=== PATIENT | female | born 1970 | race Caucasian/White ===

== ENCOUNTER 2017-11-16 17:57 | Emergency (ER) | payer BC, OTHER ==
[~2017-11-16] VITALS: Ht 157.5 cm; Wt 127.0 kg
[~2017-11-16 17:57] MED LIST: AMPH30TA3 PO; BAC10T PO; BUPR150T6; COU5T PO; ENOX100S3 SQ; FERR325T28 PO; LEVO200T46 PO; OMEP20CA4 PO
[2017-11-16 18:22] LABS: BASOPHILS # (AUTO) 0.1 X10'3 (0-0.2); BASOPHILS % (AUTO) 1.5 % (0-1); EOSINOPHILS # (AUTO) 0.1 X10'3 (0-0.9); EOSINOPHILS % (AUTO) 2.3 % (0-6); HEMATOCRIT 36.1 % (35.0-45.0); HEMOGLOBIN 11.9 g/dl (12.0-16.0); LYMPHOCYTES # (AUTO) 1.6 X10'3 (1.1-4.8); LYMPHOCYTES % (AUTO) 25.7 % (21-51); MEAN CORPUSCULAR HEMOGLOBIN 25.3 PG (27.0-31.0); MEAN CORPUSCULAR HGB CONC 32.9 % (33.0-36.5); MEAN CORPUSCULAR VOLUME 76.8 FL (78-98); MEAN PLATELET VOLUME 6.5 FL (7.4-10.4); MONOCYTES # (AUTO) 0.7 X10'3 (0-0.9); MONOCYTES % (AUTO) 11.4 % (2-12); NEUTROPHILS # (AUTO) 3.6 X10'3 (1.8-7.7); NEUTROPHILS % (AUTO) 59.1 % (42-75); PLATELET COUNT 477 X10'3 (140-440); RED CELL DISTRIBUTION WIDTH 16.6 % (11.5-14.5); WHITE BLOOD COUNT 6.2 X10'3 (4.5-11.0)
[2017-11-16 18:38] LABS: ALANINE AMINOTRANSFERASE 28 U/L (12-78); ALBUMIN 3.9 G/DL (3.4-5.0); ALBUMIN/GLOBULIN RATIO 0.9 (1.1-1.5); ALKALINE PHOSPHATASE 85 IU/L (46-116); ANION GAP 9 (8-16); ASPARTATE AMINO TRANSFERASE 22 U/L (10-37); BILIRUBIN,TOTAL 0.2 MG/DL (0.1-1.0); BLOOD UREA NITROGEN 13 MG/DL (7-18); BUN/CREATININE RATIO 18.1 (6.6-38.0); CALCIUM 9.2 MG/DL (8.5-10.1); CHLORIDE 104 MMOL/L (99-107); CREATININE 0.72 MG/DL (0.40-0.90); GLUCOSE 98 MG/DL (70-104); POTASSIUM 4.6 MMOL/L (3.5-5.1); SODIUM 143 MMOL/L (135-145); TOTAL PROTEIN 8.1 G/DL (6.4-8.2); eGFR 87 ML/MIN
[2017-11-16 18:57] LABS: INR 0.9 INR; PARTIAL THROMBOPLASTIN TIME 26 SECONDS (22-32); PROTHROMBIN TIME 9.4 SECONDS (9.0-12.0)
[2017-11-16 18:58] LABS: D-DIMER 0.34 MG/L FEU (0-0.50)
[2017-11-16 20:06] VITALS: BP 134/99
[2017-11-16] MEDS ORDERED: ketorolac trometh inj. 60 MG/2 ML VIAL IM ONE (20:30)
== END 2017-11-16 20:51 | disposition home or self-care (01) ==
LOC: ER 17:57
DX: M25.562 Pain in left knee (principal); R06.02 Shortness of breath; Z86.711 Personal history of pulmonary embolism; Z79.899 Other long term (current) drug therapy; Z98.84 Bariatric surgery status; Z79.01 Long term (current) use of anticoagulants; Z91.010 Allergy to peanuts; Z86.718 Personal history of other venous thrombosis and embolism
CPT/HCPCS: 29505; 36415; 71045; 80053; 84484; 85025; 85379; 85610; 85730; 93005; 93971; 96372; 99285; J1885

== ENCOUNTER 2017-12-27 10:59 | Outpatient (CLI) | payer OTHER ==
[2017-12-27 10:56] VITALS: BP 107/66
== END 2017-12-27 11:42 | disposition home or self-care (01) ==
LOC: ORTHO 10:59
PROVIDERS: ATTEND Nurse Practitioner Family
DX: M25.562 Pain in left knee (principal); G89.29 Other chronic pain; E03.9 Hypothyroidism, unspecified; F90.9 Attention-deficit hyperactivity disorder, unspecified type; Z86.711 Personal history of pulmonary embolism; Z91.010 Allergy to peanuts
CPT/HCPCS: 99212

== ENCOUNTER 2018-11-07 10:12 | Outpatient (CLI) | payer BC ==
[2018-11-07 10:24] VITALS: BP 134/79
== END 2018-11-07 11:05 | disposition home or self-care (01) ==
LOC: ORTHO 10:12
PROVIDERS: ATTEND Nurse Practitioner Family
DX: M17.12 Unilateral primary osteoarthritis, left knee (principal); J45.909 Unspecified asthma, uncomplicated; Z72.89 Other problems related to lifestyle; Z91.018 Allergy to other foods
CPT/HCPCS: 73564; 99213

== ENCOUNTER 2019-04-20 21:59 | Emergency (ER) | payer BC ==
[~2019-04-20] VITALS: Ht 157.5 cm; Wt 128.0 kg
[2019-04-20 22:32] VITALS: BP 159/95
[2019-04-20 22:42] LABS: BASOPHILS # (AUTO) 0.1 X10'3 (0-0.2); BASOPHILS % (AUTO) 1.1 % (0-1); EOSINOPHILS # (AUTO) 0.2 X10'3 (0-0.9); EOSINOPHILS % (AUTO) 2.3 % (0-6); HEMATOCRIT 37.8 % (35.0-45.0); HEMOGLOBIN 12.4 g/dl (12.0-16.0); LYMPHOCYTES # (AUTO) 2.9 X10'3 (1.1-4.8); LYMPHOCYTES % (AUTO) 31.8 % (21-51); MEAN CORPUSCULAR HEMOGLOBIN 26.1 PG (27.0-31.0); MEAN CORPUSCULAR HGB CONC 32.9 g/dL (33.0-36.5); MEAN CORPUSCULAR VOLUME 79.5 FL (78-98); MEAN PLATELET VOLUME 6.6 FL (7.4-10.4); MONOCYTES # (AUTO) 0.8 X10'3 (0-0.9); MONOCYTES % (AUTO) 8.9 % (2-12); NEUTROPHILS % (AUTO) 55.9 % (42-75); PLATELET COUNT 483 X10'3 (140-440); RED BLOOD COUNT 4.75 X10'6 (4.20-5.60); RED CELL DISTRIBUTION WIDTH 15.9 % (11.5-14.5)
[2019-04-20 22:51] LABS: ALANINE AMINOTRANSFERASE 30 U/L (12-78); ALBUMIN 3.6 G/DL (3.4-5.0); ALBUMIN/GLOBULIN RATIO 0.8 (1.1-1.5); ALKALINE PHOSPHATASE 91 IU/L (46-116); ANION GAP 5 (8-16); ASPARTATE AMINO TRANSFERASE 22 U/L (10-37); BILIRUBIN,TOTAL 0.2 MG/DL (0.1-1.0); BLOOD UREA NITROGEN 24 MG/DL (7-18); BUN/CREATININE RATIO 35.3 (6.6-38.0); CALCIUM 9.1 MG/DL (8.5-10.1); CHLORIDE 107 MMOL/L (99-107); CREATININE 0.68 MG/DL (0.40-0.90); GLUCOSE 100 MG/DL (70-104); POTASSIUM 4.2 MMOL/L (3.5-5.1); SODIUM 141 MMOL/L (135-145); TOTAL CARBON DIOXIDE 28.7 MMOL/L (24-32); TOTAL PROTEIN 7.9 G/DL (6.4-8.2); eGFR > 90 ML/MIN
[2019-04-20 22:55] LABS: TROPONIN I < 0.04 NG/ML (0.0-0.05)
[2019-04-20 22:57] LABS: PARTIAL THROMBOPLASTIN TIME 27 SECONDS (22-32)
== END 2019-04-20 22:49 | disposition home or self-care (01) ==
LOC: ER 22:01
DX: R20.2 Paresthesia of skin (principal); R20.0 Anesthesia of skin; R53.1 Weakness; E03.9 Hypothyroidism, unspecified; Z98.0 Intestinal bypass and anastomosis status; Z86.711 Personal history of pulmonary embolism; Z79.2 Long term (current) use of antibiotics; Z79.01 Long term (current) use of anticoagulants; Z79.899 Other long term (current) drug therapy
CPT/HCPCS: 36415; 80053; 82948; 84484; 85025; 85610; 85730; 93005; 99284

== ENCOUNTER 2021-04-03 16:57 | Emergency (ER) | payer BC ==
[~2021-04-03] VITALS: Ht 157.5 cm; Wt 127.5 kg
[~2021-04-03 16:57] MED LIST changes: +BUPR150T22; -BUPR150T6; -COU5T PO; +WARF-113 PO
[2021-04-03] MEDS ORDERED: diphenhydrAMINE 50 mg/ml inj IV ONE (17:00)
[2021-04-03] MEDS ORDERED: MIDAZolam 5mg/ml 2ml vial IV ONE (17:00)
[2021-04-03 19:49] LABS: BASOPHILS # (AUTO) 0.1 X10'3 (0-0.2); EOSINOPHILS # (AUTO) 0.4 X10'3 (0-0.9); EOSINOPHILS % (AUTO) 5.2 % (0-6); HEMATOCRIT 41.8 % (35.0-45.0); HEMOGLOBIN 13.8 g/dl (12.0-16.0); LYMPHOCYTES # (AUTO) 2.4 X10'3 (1.1-4.8); LYMPHOCYTES % (AUTO) 32.6 % (21-51); MEAN CORPUSCULAR HEMOGLOBIN 29.2 PG (27.0-31.0); MEAN CORPUSCULAR HGB CONC 33.1 g/dL (33.0-36.5); MEAN CORPUSCULAR VOLUME 88.3 FL (78-98); MEAN PLATELET VOLUME 7.3 FL (7.4-10.4); MONOCYTES # (AUTO) 0.6 X10'3 (0-0.9); MONOCYTES % (AUTO) 8.6 % (2-12); NEUTROPHILS % (AUTO) 52.6 % (42-75); PLATELET COUNT 384 X10'3 (140-440); RED BLOOD COUNT 4.73 X10'6 (4.20-5.60); RED CELL DISTRIBUTION WIDTH 14.9 % (11.5-14.5); WHITE BLOOD COUNT 7.5 X10'3 (4.5-11.0)
[2021-04-03 20:02] LABS: D-DIMER 4.04 MG/L FEU (0-0.50)
[2021-04-03 20:13] LABS: ALBUMIN 3.5 G/DL (3.4-5.0); ANION GAP 6 (8-16); BLOOD UREA NITROGEN 10 MG/DL (7-18); BUN/CREATININE RATIO 15.2 (6.6-38.0); CALCIUM 8.7 MG/DL (8.5-10.1); CHLORIDE 106 MMOL/L (99-107); CREATININE 0.66 MG/DL (0.40-0.90); GLUCOSE 103 MG/DL (70-104); POTASSIUM 4.1 MMOL/L (3.5-5.1); SODIUM 143 MMOL/L (135-145); TOTAL CARBON DIOXIDE 30.8 MMOL/L (24-32); TROPONIN I < 0.04 NG/ML (0.0-0.05); eGFR > 90 ML/MIN
--- NOTE | 2021-04-03 20:15 | NUR ---
VASCULAR AT BEDSIDE
[2021-04-03] MEDS ORDERED: iohexol 350MG/ML 100ml bottle IV ONE (20:39)
[2021-04-03 21:55] VITALS: BP 114/70
[2021-04-03] MEDS ORDERED: RIVA15TA PO (22:13)
[2021-04-03] MEDS ORDERED: rivaroxaban 10mg tablet PO STA (23:10)
== END 2021-04-03 23:19 | disposition home or self-care (01) ==
LOC: ER 16:57
DX: I82.432 Acute embolism and thrombosis of left popliteal vein (principal); R91.1 Solitary pulmonary nodule; M79.662 Pain in left lower leg; E03.9 Hypothyroidism, unspecified; Z86.711 Personal history of pulmonary embolism; Z98.890 Other specified postprocedural states; Z72.89 Other problems related to lifestyle; Z79.899 Other long term (current) drug therapy
CPT/HCPCS: 36415; 71045; 71275; 80048; 83880; 84484; 85025; 85379; 93005; 93971; 99285; Q9967

== ENCOUNTER 2021-09-05 21:25 | Emergency (ER) | payer BC ==
[~2021-09-05] VITALS: Ht 157.5 cm; Wt 122.7 kg
[~2021-09-05 21:25] MED LIST changes: -ENOX100S3 SQ; +RIVA15TA PO; -WARF-113 PO
[2021-09-05 21:47] VITALS: BP 117/57
== END 2021-09-05 22:45 | disposition home or self-care (01) ==
LOC: ER 21:26
DX: M79.605 Pain in left leg (principal); R22.42 Localized swelling, mass and lump, left lower limb; E03.9 Hypothyroidism, unspecified; M19.90 Unspecified osteoarthritis, unspecified site; Z87.01 Personal history of pneumonia (recurrent); Z79.01 Long term (current) use of anticoagulants; Z86.718 Personal history of other venous thrombosis and embolism; Z95.5 Presence of coronary angioplasty implant and graft; Z72.89 Other problems related to lifestyle; Z91.018 Allergy to other foods; Z79.899 Other long term (current) drug therapy
CPT/HCPCS: 99281

== ENCOUNTER 2023-08-29 22:20 | Emergency (ER) | payer BC, MEDICAID ==
[~2023-08-29] VITALS: Ht 157.5 cm; Wt 134.4 kg
[2023-08-29] MEDS ORDERED: metoclopramide 10mg tablet PO ONE (23:20)
[2023-08-30 00:15] VITALS: TEMP 98
[2023-08-30 00:21] LABS: BASOPHILS # (AUTO) 0.1 X10'3 (0-0.2); EOSINOPHILS # (AUTO) 0.1 X10'3 (0-0.9); MEAN PLATELET VOLUME 6.5 FL (7.4-10.4); NEUTROPHILS # (AUTO) 3.8 X10'3 (1.8-7.7); RED CELL DISTRIBUTION WIDTH 15.6 % (11.5-14.5); WHITE BLOOD COUNT 7.3 X10'3 (4.5-11.0)
[2023-08-30 00:22] LABS: BASOPHILS % (AUTO) 0.8 % (0-1); EOSINOPHILS % (AUTO) 1.5 % (0-6); HEMATOCRIT 45.6 % (35.0-45.0); HEMOGLOBIN 15.1 g/dl (12.0-16.0); LYMPHOCYTES # (AUTO) 2.6 X10'3 (1.1-4.8); LYMPHOCYTES % (AUTO) 35.7 % (21-51); MEAN CORPUSCULAR HEMOGLOBIN 28.5 PG (27.0-31.0); MEAN CORPUSCULAR HGB CONC 33.2 g/dL (33.0-36.5); MONOCYTES # (AUTO) 0.7 X10'3 (0-0.9); PLATELET COUNT 676 X10'3 (140-440)
[2023-08-30 00:33] LABS: ALANINE AMINOTRANSFERASE 20 U/L (12-78); ALBUMIN 3.4 G/DL (3.4-5.0); ALBUMIN/GLOBULIN RATIO 0.8 (1.1-1.5); ALKALINE PHOSPHATASE 71 IU/L (46-116); ANION GAP 5 (8-16); ASPARTATE AMINO TRANSFERASE 19 U/L (10-37); BILIRUBIN,TOTAL 0.3 MG/DL (0.1-1.0); BLOOD UREA NITROGEN 11 MG/DL (7-18); BUN/CREATININE RATIO 15.1 (10.0-20.0); CALCIUM 9.1 MG/DL (8.5-10.1); CHLORIDE 103 MMOL/L (99-107); CREATININE 0.73 MG/DL (0.40-0.90); GLUCOSE 103 MG/DL (70-104); LIPASE 32 U/L (16-77); SODIUM 137 MMOL/L (135-145); TOTAL CARBON DIOXIDE 29.5 MMOL/L (24-32); TOTAL PROTEIN 7.7 G/DL (6.4-8.2); eCRCL 71 ML/MIN; eGFR 84 ML/MIN
[2023-08-30] MEDS ORDERED: ketorolac trometh inj. 60 MG/2 ML VIAL IM ONE (01:00)
[2023-08-30 01:24] VITALS: BP 155/56; PULSE 62; RESP 17; O2SAT 98
== END 2023-08-30 01:22 | disposition home or self-care (01) ==
LOC: ER 22:21
DX: H93.13 Tinnitus, bilateral (principal); R42 Dizziness and giddiness; E03.9 Hypothyroidism, unspecified; Z88.8 Allergy status to other drugs, medicaments and biological substances; Z79.899 Other long term (current) drug therapy
CPT/HCPCS: 80053; 83690; 85025; 93005; 96372; 99284; J1885